=== PATIENT | female | born 1970 | race Caucasian/White ===

== ENCOUNTER → 2022-07-01 | Day surgery (SDC) | payer OTHER ==
[~2022-07-01] MED LIST: ACETAMINOPHEN-1 EAC4 PO; ASPIRIN EC81 MG PO; BACTRIM DS TAB1 EACH PO; BUPIVACAINE HCL 0.5% INJ 30 ML VIAL INJ ONE; BUSPIRONE HCL5 MG PO; CANDICIDAL CAP1 EACH PO; CARVEDILOL3.125 MG PO; CITALOPRAM HBR20 MG PO; CRESTOR10 MG PO; DEXAMETHASONE SOD PHOS INJ 4 MG/ML SDV ONE; EPHEDRINE SULFATE INJ 50 MG/ML VIAL ONE; GLYCOPYRROLATE INJ 0.2 MG/ML VIAL ONE; LACTATED RINGER'S 1,000 ML ONE; LIDOCAINE HCL 2% LOCAL INJ 5 ML SDV VIAL INJ ONE; MELOXICAM7.5 MG PO; MULTI-VITAMIN1 EACH PO; NAMENDA10 MG PO; NEURONTIN300 MG PO; ONDANSETRON HCL INJ 2MG/ML 2ML 2 MG/ML VIAL ONE; POVIDONE IODINE 0.05% 0.05 % ML PO ONE; PROPOFOL IV EMULSION 10 MG/ML 20 ML VIAL ONE; VITAMIN C1000 MG PO
[2022-07-01 09:44] VITALS: BP 157/90; PULSE 59; RESP 18; O2SAT 99
== END | disposition home or self-care (01) ==
LOC: OR 08:11
PROVIDERS: ATTEND Orthopaedic Surgery
DX: G56.02 Carpal tunnel syndrome, left upper limb (principal); D64.9 Anemia, unspecified; M06.9 Rheumatoid arthritis, unspecified; G61.81 Chronic inflammatory demyelinating polyneuritis; I10 Essential (primary) hypertension; E78.5 Hyperlipidemia, unspecified; E66.01 Morbid (severe) obesity due to excess calories; I69.328 Other speech and language deficits following cerebral infarction; F41.9 Anxiety disorder, unspecified; F32.A Depression, unspecified; I83.90 Asymptomatic varicose veins of unspecified lower extremity; F17.290 Nicotine dependence, other tobacco product, uncomplicated; Z88.6 Allergy status to analgesic agent; Z88.0 Allergy status to penicillin; Z79.1 Long term (current) use of non-steroidal anti-inflammatories (NSAID); Z79.899 Other long term (current) drug therapy; Z85.41 Personal history of malignant neoplasm of cervix uteri
CPT/HCPCS: 29848; J1100; J2001; J2405; J2704; J7121

== ENCOUNTER 2022-07-10 22:40 | Emergency (ER) | payer OTHER ==
[~2022-07-10 22:40] MED LIST changes: -ACETAMINOPHEN-1 EAC4 PO; -BACTRIM DS TAB1 EACH PO; -BUPIVACAINE HCL 0.5% INJ 30 ML VIAL INJ ONE; -DEXAMETHASONE SOD PHOS INJ 4 MG/ML SDV ONE; -EPHEDRINE SULFATE INJ 50 MG/ML VIAL ONE; -GLYCOPYRROLATE INJ 0.2 MG/ML VIAL ONE; -LACTATED RINGER'S 1,000 ML ONE; -LIDOCAINE HCL 2% LOCAL INJ 5 ML SDV VIAL INJ ONE; -ONDANSETRON HCL INJ 2MG/ML 2ML 2 MG/ML VIAL ONE; -POVIDONE IODINE 0.05% 0.05 % ML PO ONE; -PROPOFOL IV EMULSION 10 MG/ML 20 ML VIAL ONE
[2022-07-10 22:55] VITALS: O2SAT 100
[2022-07-10] MEDS ORDERED: TRIMETHOPRIM/SULFAMETHOXAZOLE 160-800 MG TAB PO ONE (23:00)
[2022-07-10] MEDS ORDERED: BACTRIM DS TAB1 EACH PO (23:04)
[2022-07-10] MEDS ORDERED: ACETAMINOPHEN-1 EAC4 PO (23:04)
== END 2022-07-10 23:29 | disposition home or self-care (01) ==
LOC: ER 22:50
DX: T81.49XA Infection following a procedure, other surgical site, initial encounter (principal); L76.82 Other postprocedural complications of skin and subcutaneous tissue; M25.532 Pain in left wrist; L08.9 Local infection of the skin and subcutaneous tissue, unspecified; Y83.8 Other surgical procedures as the cause of abnormal reaction of the patient, or of later complication, without mention of misadventure at the time of the procedure
CPT/HCPCS: 99282